=== PATIENT | female | born 1990 | race Caucasian/White ===

== ENCOUNTER → 2017-04-06 | Outpatient (CLI) | payer BC ==
[~2017-04-06] VITALS: Ht 154.9 cm; Wt 64.5 kg
[~2017-04-06] MED LIST: CAMILA0.35 MG PO; CHROMAGEN,1 CAPSULE PO; IBUPROFEN800 MG PO; LEVO-T100 MCG PO; PRENATAL TABLE1 EAC3 PO; ZOFRAN8 MG PO
[2017-04-06 12:36] VITALS: BP 108/56
== END | disposition home or self-care (01) ==
LOC: IVINF 12:21
DX: Z31.82 Encounter for Rh incompatibility status (principal); O46.92 Antepartum hemorrhage, unspecified, second trimester
CPT/HCPCS: 96372; J2790